=== PATIENT | male | born 1965 | race American Indian/Alaskan Native ===

== ENCOUNTER 2021-12-24 16:15 | Emergency (ER) | payer MEDICAID ==
[2021-12-24 20:15] LABS: Albumin 4.4 g/dL (3.9-5); Calcium 9.7 mg/dL (8.4-10.2)
[2021-12-24 20:20] LABS: Hematocrit 44.2 % (35.5-45.6); Hemoglobin 14.9 gm/dl (11.8-15.2); Mean Corpuscular HGB Conc 34 % (32-34); Mean Corpuscular Volume 94 fl (84-94); Platelet Count 203 K/mm3 (140-440); Red Cell Distribution Width 13.2 % (13.2-15.2)
[2021-12-24 21:34] LABS: Basophils % (Manual) 0 % (0.0-1.8); Eosinophils % (Manual) 0 % (0.0-4.3); Total Cells Counted 100
[2021-12-24 21:35] LABS: Platelet Estimate Consistent w Auto; RBC Morphology Normal
[2021-12-25 03:27] LABS: Bilirubin,Urine NEG (Negative); Blood,Urine MOD (Negative); Color,Urine Yellow (Yellow)
[2021-12-25 03:29] LABS: Mucus,Urine 1+ /HPF
--- NOTE | 2021-12-25 04:48 | Cat Scan Report ---
CT ABDOMEN AND PELVIS WITHOUT CONTRAST INDICATION / CLINICAL INFORMATION: flank and right pelvic pain. TECHNIQUE: Axial CT images were obtained through the abdomen and pelvis without IV contrast. All CT scans at this location are performed using CT dose reduction for ALARA by means of automated exposure control. COMPARISON: None available. FINDINGS: LOWER CHEST: No significant abnormality. LIVER: No significant abnormality. GALLBLADDER: No significant abnormality. BILE DUCTS: No significant abnormality. PANCREAS: No significant abnormality. SPLEEN: No significant abnormality. ADRENALS: No significant abnormality. RIGHT KIDNEY / URETER: Small, benign-appearing cysts. 1 mm nonobstructing stone. LEFT KIDNEY / URETER: No significant abnormality. STOMACH / SMALL BOWEL: No significant abnormality. COLON: No significant abnormality. APPENDIX: No significant abnormality. PERITONEUM: No free fluid. No free air. No fluid collection. LYMPH NODES: No significant adenopathy. VASCULAR STRUCTURES: No significant abnormality. URINARY BLADDER: No significant abnormality. REPRODUCTIVE ORGANS: No significant abnormality. ADDITIONAL FINDINGS: None. SKELETAL SYSTEM: No significant abnormality. IMPRESSION: 1. Negative for obstruction or localized inflammation. 2. 1 mm nonobstructing right renal stone. Signer Name: Paddy Potts MD Signed: 12/25/2021 4:43 AM Workstation Name: [id number]
--- NOTE | 2021-12-25 05:07 | Emergency Department Report ---
ED Abdominal Pain HPI - General Chief Complaint: Abdominal Pain Stated Complaint: VOMITING /RT RIB PAIN Time Seen by Provider: 12/25/21 03:09 Source: patient, EMS Mode of arrival: Stretcher Limitations: No Limitations - History of Present Illness MD Complaint: flank pain Severity scale (0 -10): 5 - Related Data Previous Rx's Medication Instructions Recorded Last Taken Type Ketorolac [Toradol] 10 mg PO Q6H PRN #15 tablet 12/25/21 Unknown Rx Tamsulosin [Flomax] 0.4 mg PO QDAY #10 cap 12/25/21 Unknown Rx cephALEXin [Keflex] 500 mg PO Q6HR #40 capsule 12/25/21 Unknown Rx Allergies Allergy/AdvReac Type Severity Reaction Status Date / Time No Known Allergies Allergy Unverified 12/24/21 17:40 ED Review of Systems ROS: Stated complaint: VOMITING /RT RIB PAIN Other details as noted in HPI Comment: All other systems reviewed and negative ED Past Medical Hx - Medications Home Medications: Home Medications Medication Instructions Recorded Confirmed Last Taken Type Ketorolac [Toradol] 10 mg PO Q6H PRN #15 tablet 12/25/21 Unknown Rx Tamsulosin [Flomax] 0.4 mg PO QDAY #10 cap 12/25/21 Unknown Rx cephALEXin [Keflex] 500 mg PO Q6HR #40 capsule 12/25/21 Unknown Rx ED Physical Exam - General Limitations: No Limitations General appearance: alert, in no apparent distress - Head Head exam: Present: atraumatic, normocephalic - Eye Eye exam: Present: normal appearance - ENT ENT exam: Present: mucous membranes moist - Neck Neck exam: Present: normal inspection - Respiratory Respiratory exam: Present: normal lung sounds bilaterally. Absent: respiratory distress - Cardiovascular Cardiovascular Exam: Present: regular rate, normal rhythm. Absent: systolic mur mur, diastolic murmur, rubs, gallop - GI/Abdominal GI/Abdominal exam: Present: soft, normal bowel sounds - Rectal Rectal exam: Present: deferred - Extremities Exam Extremities exam: Present: normal inspection, full ROM - Back Exam Back exam: Present: normal inspection, tenderness, CVA tenderness (R), CVA tenderness (L), muscle spasm, paraspinal tenderness, vertebral tenderness - Neurological Exam Neurological exam: Present: alert, oriented X3, CN II-XII intact - Psychiatric Psychiatric exam: Present: normal affect, normal mood - Skin Skin exam: Present: warm, dry, intact, normal color. Absent: rash ED Course Vital Signs 12/24/21 16:15 Temperature 98.0 F Pulse Rate 98 H Respiratory 16 Rate Blood Pressure 154/88 [Left] O2 Sat by Pulse 98 Oximetry ED Medical Decision Making - Lab Data Result diagrams: 12/24/21 19:19 12/24/21 19:19 Critical care attestation.: If time is entered above; I have spent that time in minutes in the direct care of this critically ill patient, excluding procedure time. ED Disposition Condition: Stable
[2021-12-25 05:29] VITALS: BP 157/89
== END 2021-12-25 06:56 | disposition home or self-care (01) ==
LOC: ED 16:15
DX: R10.9 Unspecified abdominal pain (principal); R11.10 Vomiting, unspecified; R07.81 Pleurodynia
CPT/HCPCS: 36415; 74176; 80053; 81001; 85007; 85025; 87086; 99284